=== PATIENT | male | born 1985 | race Two or more races ===

== ENCOUNTER 2020-04-18 23:36 | Emergency (ER) | payer SELFPAY ==
[~2020-04-18] VITALS: Ht 175.3 cm; Wt 99.8 kg
--- NOTE | 2020-04-18 23:52 | NUR ---
ED Nurse Note: PT walked in from home, walks with a steady gait, vitals are stable on RA, Speaks in full sentances, breathing is even and unlabored. Pt states that he has been feeling light headed off and on for the last month, he also reports feeling full even after eatting
[2020-04-18 23:55] VITALS: BP 129/85
[2020-04-19] VITALS: BP 163/83
[2020-04-19 00:05] VITALS: BP 144/91
[2020-04-19] MEDS ORDERED: AMOXICILLIN500 MG ORAL (00:10)
[2020-04-19 00:35] VITALS: BP 129/92
--- NOTE | 2020-04-19 00:51 | Emergency Room Report ---
History of Present Illness General Chief Complaint: General Complaint Source: Patient Present Illness HPI Patient is a 35-year-old male presents for increased generalized weakness. Denies any shortness of breath. Denies any recent fever. Reports having increased left-sided ear fullness. Denies any prior medical history. States that he drinks alcohol somewhat regularly. Denies any vomiting or diarrhea or bloody stools. Weakness was unchanged by position or movement. Reports increased sugar intake over the past few months. 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: No Patient History Past Medical History: see triage record Reviewed Nursing Documentation: PMH: Agreed; PSxH: Agreed Nursing Documentation-PM Past Medical History: No Stated History Review of Systems All Other Systems: negative except mentioned in HPI Physical Exam Vital Signs Date Time Temp Pulse Resp B/P (MAP) Pulse Ox O2 Delivery O2 Flow Rate FiO2 04/18/20 23:40 98.8 92 20 142/104 (117) 98 Room Air General Appearance: well appearing, no apparent distress, alert, GCS 15 Head: normocephalic, atraumatic ENT: hearing grossly normal, normal voice, other - Left TM with erythema, tonsillar swelling and erythema. Neck: full range of motion, supple Respiratory: lungs clear, normal breath sounds, no respiratory distress, speaking full sentences Cardiovascular #1: normal inspection, regular rate, rhythm, no edema Gastrointestinal: normal inspection, soft Musculoskeletal: normal inspection, gait/station normal, swelling, normal range of motion, no calf tenderness Neurologic: alert, motor strength/tone normal, [place] III-XII nml as tested, oriented x3, normal gait Psychiatric: normal inspection, mood/affect normal Skin: no rash Medical Decision Making Diagnostic Impression: Primary Impression: Otitis media Additional Impression: Hyperglycemia ER Course Patient presented for generalized weakness and left-sided earache. Differential diagnosis include was not limited to diabetes, electrolyte abnormality, viral infection among others. Patient has a benign exam and does not appear to require any imaging or laboratory testing at this time. Patient has overall benign exam and blood sugar was noted be less than 120 but still slightly elevated. Patient does not appear to be in any acute distress. He does appear to have some evidence of left-sided otitis media. Patient was advised alcohol cessation as well as dietary modification. Orthostatic vital signs were unremarkable. Patient was advised to return if worse. This medical record is generated with [employer] splitter head software. There may be some splitter head discrepancies related to use of this software Last Vital Signs Date Time Temp Pulse Resp B/P (MAP) Pulse Ox O2 Delivery O2 Flow Rate FiO2 04/19/20 00:35 98.3 89 14 129/92 100 Room Air Status: improved Disposition: HOME, SELF-CARE Condition: Stable Scripts Amoxicillin* (AMOXIL*) 500 Mg Capsule 500 MG ORAL THREE TIMES A DAY, #21 CAP Prov: Harmeet Gillis MD 04/19/20 Referrals: NOT CHOSEN IPA/,REFERRING (PCP) Patient Instructions: Hyperglycemia, [id number], Otitis Media, Adult Additional Instructions: Follow up with your doctor for recheck. Return if worse. Avoid drinking alcohol. Harmeet Gillis MD Apr 19, 2020 00:51
== END 2020-04-19 00:36 | disposition home or self-care (01) ==
LOC: EMR 23:53
DX: H66.92 Otitis media, unspecified, left ear (principal); R73.9 Hyperglycemia, unspecified
CPT/HCPCS: 82962; 99283

== ENCOUNTER 2020-04-26 19:58 | Emergency (ER) | payer SELFPAY ==
[~2020-04-26] VITALS: Ht 172.7 cm; Wt 86.2 kg
[~2020-04-26 19:58] MED LIST: AMOXICILLIN500 MG ORAL
[2020-04-26 20:14] VITALS: BP 138/72
--- NOTE | 2020-04-26 20:19 | NUR ---
ED Nurse Note: Pt came to ED from home after coming to the ED on Apr 18 for left ear pain and took the ATB that was prescribed and still has some discomfort and feel when he uses a Qtip that there is additional pressure. Right now he feel a little lighted headed. Pain is 2/10 with the continious pressure on the left ear. Pt is A/O x 4 with no SOB or acute distress. Ambulatory. Pt would like to have some ear drops to help.
--- NOTE | 2020-04-26 21:05 | Emergency Room Report ---
History of Present Illness General Chief Complaint: Earache Source: Patient Present Illness HPI The patient presents with left ear pain. He has had recurrent infections. He was recently treated with amoxicillin. He states that the ear still has pain. He denies decrease in hearing. He denies fevers or chills. There is no sore throat. There is no drainage from the ear. He has no upper respiratory sympto ms. He rates the pain 2/10 at this time. Is more aching. The patient feels he has better results after taking eardrops. The last time he had Ciprodex. When the patient was here during his last visit he was told his blood sugar was high. He was advised he did not need treatment at that time. He states that he gets anxious when he starts to feel hungry and has a strange feeling in his stomach. This is helped by eating food. He knows of no family history of diabetes. (He only met his father when he was 6 years old and 1 time.) Patient denies exposure to Covid positive contacts. 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 Nursing Documentation: PMH: Agreed; PSxH: Agreed Review of Systems Constitutional: Reports: see HPI Eye: Denies: tearing ENT: Reports: see HPI Respiratory: Reports: see HPI Skin: Denies: rash Neurological: Denies: headache Physical Exam Vital Signs Date Time Temp Pulse Resp B/P (MAP) Pulse Ox O2 Delivery O2 Flow Rate FiO2 04/26/20 20:05 98.1 78 20 149/84 (105) 98 Room Air Sp02 EP Interpretation: reviewed, normal General Appearance: well appearing, no apparent distress, GCS 15 Head: normocephalic Eyes: bilateral eye normal inspection, bilateral eye PERRL ENT: moist mucus membranes, other - Canal swelling left, TM slight edema but no erythema, minimal pinna tenderness and no mastoid tenderness Neck: normal inspection Respiratory: normal inspection Cardiovascular #1: regular rate, rhythm Cardiovascular #2: 2+ radial (R) Gastrointestinal: normal inspection Musculoskeletal: gait/station normal Neurologic: alert, grossly normal Psychiatric: mood/affect normal Skin: normal color, no rash, warm/dry Medical Decision Making Diagnostic Impression: Primary Impression: Otitis externa Qualified Codes: H60.392 - Other infective otitis externa, left ear ER Course The patient presents with history of left ear pain is recurrent. Differential includes otitis media, otitis externa. There is no evidence of cerumen impaction at this time. Exam is clinical and consistent with otitis externa. Treatment with antibiotic drops indicated. In addition the patient is concerned about possible hypoglycemia and an anxious feeling that is relieved with eating food. Accu-Chek will be obtained. This could be evidence of some GERD type of symptomatology. The patient denies stress. Accu-Chek 102. (Review of prior Accu-Chek was 116 which is normal.) Discussed findings with patient and treatment plan. Patient stable for outpatient observation and treatment. Last Vital Signs Date Time Temp Pulse Resp B/P (MAP) Pulse Ox O2 Delivery O2 Flow Rate FiO2 04/26/20 21:35 97.9 71 17 135/72 99 Room Air Status: improved Disposition: HOME, SELF-CARE Condition: Improved Scripts Famotidine* (Pepcid 20mg tablet*) 20 Mg Tablet 20 MG ORAL DAILY PRN for stomach symptoms, #30 TAB 0 Refills Prov: Hemanth Millan MD 04/26/20 Ciprofloxacin Hcl/Dexameth (CIPRODEX OTIC SUSPENSION) 7.5 Ml Drops.susp 4 DROP LEFT EAR TWICE A DAY, #7.5 ML Prov: Hemanth Millan MD 04/26/20 Referrals: NOT CHOSEN [facility]/,REFERRING (PCP) Hemanth Millan MD Apr 26, 2020 21:05
[2020-04-26] MEDS ORDERED: CORTISPORIN EAR10 ML LEFT EAR (21:08)
[2020-04-26] MEDS ORDERED: CIPRODEX OTIC7.5 M1 LEFT EAR (21:30)
[2020-04-26] MEDS ORDERED: FAMOTIDINE20 MG ORAL (21:31)
--- NOTE | 2020-04-26 21:34 | NUR ---
ER DISCHARGE NOTE: Patient is cleared to be discharged per ERMD, pt is aox4, on room air, with stable vital signs. pt was given dc and prescription instructions, pt was able to verbalize understanding, pt id band removed without complications. pt is able to ambulate with steady gait. pt took all belongings.
[2020-04-26 21:35] VITALS: BP 135/72
== END 2020-04-26 21:30 | disposition home or self-care (01) ==
LOC: EMR 20:59
DX: H60.392 Other infective otitis externa, left ear (principal)
CPT/HCPCS: 99282